=== PATIENT | female | born 1990 | race African-American/Black ===

== ENCOUNTER 2024-03-03 16:50 | Emergency (ER) | payer OTHER, SELFPAY ==
--- NOTE | ~2024-03-03 | XR_ITS ---
XR chest 2V Ordering provider: Gianfranco Smith APRN History: 33 years Female with . midsternal chest pain hx HTN . Comparison: None. FINDINGS: MEDIASTINUM: The cardiac silhouette is not enlarged. LUNGS: No effusions or pneumothorax. Prominent markings in the right lower lobe. Early pneumonia cannot be excluded. Follow-up advised. OTHER: No free air under the diaphragm. IMPRESSION: Prominent markings in the right lower lobe. Early pneumonia cannot be excluded. Follow-up advised. Reviewed, dictated and finalized at location A.
--- NOTE | 2024-03-03 16:52 | ECG_ITS ---
Test Date: 2024-03-03 16:55:53 Measurements Intervals [place] Rate: 93 P: 34 MT: 168 QRS: 22 QRSD: 92 T: 1 QT: 350 QTc: 437 Interpretive Statements SINUS RHYTHM NONSPECIFIC ST-T WAVE ABNORMALITY- ANT/INF LEADS BORDERLINE ECG No previous ECG available for comparison Electronically Signed On 03-03-2024 18:49:09 CDT by Edgardo Wyatt D.O.
[2024-03-03 17:04] VITALS: BP 157/81; PULSE 91; RESP 15; TEMP 36.3; O2SAT 99
--- NOTE | 2024-03-03 17:07 | ED.CHESTPAIN ---
HPI - Chest Pain General Chief Complaint: Chest Pain Stated Complaint: abnormal EKG Time Seen by Provider: 03/03/24 20:17 Focused HPI: 33-year-old female history of hypertension presents to the emergency room for evaluation of chest pain. Patient states that she has been experiencing of midsternal chest pain intermittently for 2 weeks. Patient was initially seen at an urgent care, had an EKG obtained which showed no acute abnormalities. Patient states at that time she felt that her chest pain was related to mold exposure from work. Urgent Care told her to take Zyrtec for the chest pain. States no improvement. Was seen again today at urgent care for similar symptoms, and was told to come to the emergency room for further evaluation. Patient states the chest pain is present for anywhere between several hours to several minutes. pain does not radiate. It is associated with occasional shortness of breath. Denies nausea or vomiting. Denies lightheadedness or dizziness. No history of similar symptoms GENERAL: Well-appearing, well-nourished, and in no acute distress. HEAD: Normocephalic, atraumatic. CHEST: Clear to auscultation. No respiratory distress. HEART: Regular rate and rhythm. NEURO: Alert and oriented x3. Patient screened in triage and initial orders placed. Additional care and disposition to be based upon diagnostic testing and treatment. Related Data Allergies Allergy/AdvReac Type Severity Reaction Status Date / Time No Known Allergies Allergy Verified 03/03/24 16:50 Course Vital Signs Vital signs: Vital Signs Temperature 36.3 C L 03/03/24 17:04 Pulse Rate 91 03/03/24 17:04 Respiratory Rate 15 03/03/24 17:04 Blood Pressure 157/81 H 03/03/24 17:04 Pulse Oximetry 99 03/03/24 17:04 Oxygen Delivery Room Air 03/03/24 17:04 Temperature 36.8 C 03/03/24 21:15 Pulse Rate 82 03/03/24 21:15 Respiratory Rate 21 H 03/03/24 21:15 Blood Pressure 143/106 H 03/03/24 21:15 Pulse Oximetry 100 03/03/24 21:15 Oxygen Delivery Room Air 03/03/24 20:58 MDM - Chest Pain Lab Data 03/03/24 17:12 03/03/24 17:12 Labs: Lab Results 07/18/24 Range/Units 17:12 WBC 7.5 (4.5-10.0) K/mm3 RBC 4.30 (4.2-5.4) M/mm3 Hgb 13.4 (12.0-15.0) g/dL Hct 38.7 (37.0-47.0) % MCV 90.0 (80-100) fl MCH 31.2 (26-34) pg MCHC 34.6 (32-36) g/dl RDW 13.1 (11.5-14.5) % Plt Count 261 (150-375) k/mm3 MPV 10.4 (7.4-10.4) fl Immature Gran % (Auto) 0.1 (0-0.5) % Neut % (Auto) 43.4 L (45.5-73.1) % Lymph % (Auto) 45.3 H (18.3-44.2) % [place] % (Auto) 8.1 (2.6-8.5) % Eos % (Auto) 2.4 (0-4.4) % Baso % (Auto) 0.7 (0.2-1.2) % Lymph # (Auto) 3.41 H (0.9-3.2) K/mm3 [place] # (Auto) 0.6 (0.1-0.6) K/mm3 Eos # (Auto) 0.2 (0-0.3) K/mm3 Baso # (Auto) 0.1 (0.0-0.1) K/mm3 Abs Immat Gran (auto) 0.01 (0.00-0.031) K/mm3 Absolute Neuts (auto) 3.3 (1.3-6.7) K/mm3 Absolute Nucleated RBC 0.000 (0.0-0.012) K/mm3 Nucleated RBC % 0.0 (0.0-0.2) % D-Dimer 0.48 (<0.48) ug/mL Sodium 139 (137-145) mmol/L Potassium 3.3 L (3.4-5.0) mmol/L Chloride 100 (98-107) mmol/L Carbon Dioxide 28 (22-30) mmol/L Anion Gap 11 (4-12) mmol/L BUN 11 (7-17) mg/dL Creatinine 0.80 (0.7-1.0) mg/dL Estim Creat Clear Calc 106 ml/min Estimated GFR > 60 (59 - ) Glucose 121 H (65-110) mg/dL Calcium 9.3 (8.4-10.2) mg/dL Magnesium 1.6 (1.6-2.3) mg/dL Total Bilirubin 0.4 (0.2-1.3) mg/dL AST 61 H (14-36) U/L ALT 65 H (6-35) U/L Alkaline Phosphatase 79 (38-126) U/L Troponin I < 0.012 (0.000-0.034) ng/mL Total Protein 8.0 (6.3-8.2) g/dL Albumin 4.3 (3.5-5.1) g/dL Discharge Plan Discharge Clinical Impression: Acute bronchospasm, Pneumonia Patient Disposition: Home, Self-Care Condition: Stable Instructions: Community Acquired Pneumonia (DC), Bronchospasm (ED) Additional Instructions: RETURN
[2024-03-03 17:26] LABS: Basophils Absolute Auto 0.1 K/mm3 (0.0-0.1); Basophils Percent Auto 0.7 % (0.2-1.2); Eosinophils Absolute Auto 0.2 K/mm3 (0-0.3); Eosinophils Percent Auto 2.4 % (0-4.4); Hematocrit 38.7 % (37.0-47.0); Hemoglobin 13.4 g/dL (12.0-15.0); Immature Granulocyte Absolute 0.01 K/mm3 (0.00-0.031); Immature Granulocyte Percent A 0.1 % (0-0.5); Lymphocytes Absolute Auto 3.41 K/mm3 (0.9-3.2); Lymphocytes Percent Auto 45.3 % (18.3-44.2); Mean Corpuscular HGB Conc 34.6 g/dl (32-36); Mean Corpuscular Hemoglobin 31.2 pg (26-34); Mean Platelet Volume 10.4 fl (7.4-10.4); Monocytes Absolute Auto 0.6 K/mm3 (0.1-0.6); Monocytes Percent Auto 8.1 % (2.6-8.5); Neutrophils Absolute Auto 3.3 K/mm3 (1.3-6.7); Neutrophils Percent Auto 43.4 % (45.5-73.1); Platelet Count Result 261 k/mm3 (150-375); Red Cell Distribution Width 13.1 % (11.5-14.5); White Blood Count 7.5 K/mm3 (4.5-10.0)
[2024-03-03 17:41] LABS: Alanine Aminotransferase 65 U/L (6-35); Albumin Level 4.3 g/dL (3.5-5.1); Alkaline Phosphatase 79 U/L (38-126); Anion Gap 11 mmol/L (4-12); Aspartate Amino Transferase 61 U/L (14-36); Bilirubin,Total 0.4 mg/dL (0.2-1.3); Blood Urea Nitrogen 11 mg/dL (7-17); Calcium 9.3 mg/dL (8.4-10.2); Carbon Dioxide 28 mmol/L (22-30); Chloride 100 mmol/L (98-107); Estimated CRCL calculation 106 ml/min; Estimated Glomerular Filt Rate > 60; Glucose 121 mg/dL (65-110); Magnesium 1.6 mg/dL (1.6-2.3); Potassium 3.3 mmol/L (3.4-5.0); Sodium 139 mmol/L (137-145)
[2024-03-03 17:49] LABS: Troponin I < 0.012 ng/mL (0.000-0.034)
[2024-03-03 17:54] LABS: D Dimer 0.48 ug/mL (<0.48)
[2024-03-03 19:20] VITALS: BP 178/98; PULSE 88; RESP 18; O2SAT 100
--- NOTE | 2024-03-03 20:18 | ED.CHESTPAIN ---
HPI - Chest Pain General Chief Complaint: Chest Pain Stated Complaint: abnormal EKG Time Seen by Provider: 03/03/24 20:17 Source: patient Mode of arrival: ambulatory Limitations: no limitations History of Present Illness HPI narrative: 33 YEARS OLD FEMALE REFERRED TO OUR EMERGENCY ROOM FROM URGENT CARE BECAUSE OF NONSPECIFIC ABNORMALITY IN HER EKG. PATIENT IS TELLING ME THAT SHE HAS BEEN HAVING RETROSTERNAL HEAVINESS FOR THE LAST 2 WEEKS. MAINLY WHILE AT WORK. 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 POSSIBLE MOLD AT WORK. THE HEAVINESS LATELY BECAME AT WORK AND AT HOME. SHE DENIES ANY AGGRAVATING OR RELIEVING FACTORS. SHE DENIES ANY FEVER, CHILLS, NAUSEA, VOMITING, COUGHING, SHORTNESS OF BREATH. PATIENT STARTED ON ANTIHYPERTENSIVE MEDICATION 2 WEEKS AGO AT THE URGENT CARE. Related Data Allergies Allergy/AdvReac Type Severity Reaction Status Date / Time No Known Allergies Allergy Verified 03/03/24 16:50 Review of Systems Review of Systems: All systems reviewed & are unremarkable except as noted in HPI and below Exam Narrative: GENERAL APPEARANCE: WELL-DEVELOPED, WELL-NOURISHED SKIN: NORMAL COLOR HEAD: NORMOCEPHALIC, NONTRAUMATIC EYES: CLEAR CONJUNCTIVA ENT: OROPHARYNX NORMAL, EARS NORMAL, NOSE NORMAL NECK: SUPPLE, NONTENDER CHEST AND RESPIRATORY: AIRWAY PATENT, NO RESPIRATORY DISTRESS, NO ACCESSORY MUSCLE USE, SCATTERED FINE WHEEZING BILATERALLY HEART: REGULAR RATE/RHYTHM ABDOMEN: SOFT, NONTENDER, NO ORGANOMEGALY, QUIET BOWEL SOUNDS VASCULAR: NORMAL PERIPHERAL PULSES, NORMAL CAPILLARY REFILL. 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 IS NORMAL TESTED, NO GROSS MOTOR DEFICIT Course Vital Signs Vital signs: Vital Signs Temperature 36.3 C L 03/03/24 17:04 Pulse Rate 91 03/03/24 17:04 Respiratory Rate 15 03/03/24 17:04 Blood Pressure 157/81 H 03/03/24 17:04 Pulse Oximetry 99 03/03/24 17:04 Oxygen Delivery Room Air 03/03/24 17:04 Temperature 36.3 C L 03/03/24 17:04 Pulse Rate 88 03/03/24 19:20 Respiratory Rate 18 03/03/24 19:20 Blood Pressure 178/98 H 03/03/24 19:20 Pulse Oximetry 100 03/03/24 19:20 Oxygen Delivery Room Air 03/03/24 17:04 MDM - Chest Pain MDM Narrative Medical decision making narrative: DIFFERENTIAL DIAGNOSIS INCLUDE CHEST WALL PAIN, ESOPHAGEAL SPASM, PULMONARY EMBOLISM, LESS LIKELY CORONARY ARTERY DISEASE, PATIENT CARDIAC SCORE IS 1, BRONCHOSPASM, PNEUMONIA BLOOD WORKUP TODAY SHOWED POTASSIUM OF 3.3 OTHERWISE NO SIGNIFICANT ABNORMALITY CHEST X-RAY SHOWED PROMINENT MARKING RIGHT LOWER LOBE COULD BE EARLY PNEUMONIA. EKG SHOWED NONSPECIFIC ABNORMALITY MY PLAN TO DISCHARGE PATIENT ON Z-HAMZAH, PREDNISONE AND ALBUTEROL TREATMENT. POSSIBLE HEAVINESS SECONDARY TO BRONCHOSPASM, COULD BE RELATED TO SOME ALLERGY AT WORK Differential Diagnosis Differential diagnosis: Likely other ( ABOVE) Medical Records Data Attestation: I reviewed the patient's medical records. Lab Data Attestation: I reviewed the patient's lab results. 03/03/24 17:12 03/03/24 17:12 Labs: Lab Results 03/03/24 Range/Units 17:12 WBC 7.5 (4.5-10.0) K/mm3 RBC 4.30 (4.2-5.4) M/mm3 Hgb 13.4 (12.0-15.0) g/dL Hct 38.7 (37.0-47.0) % MCV 90.0 (80-100) fl MCH 31.2 (26-34) pg MCHC 34.6 (32-36) g/dl RDW 13.1 (11.5-14.5) % Plt Count 261 (150-375) k/mm3 MPV 10.4 (7.4-10.4) fl Immature Gran % (Auto) 0.1 (0-0.5) % Neut % (Auto) 43.4 L (45.5-73.1) % Lymph % (Auto) 45.3 H (18.3-44.2) % [place] % (Auto) 8.1 (2.6-8.5) % Eo
[2024-03-03 20:58] VITALS: BP 162/82; PULSE 75; RESP 18; TEMP 36.7; O2SAT 100
[2024-03-03 21:15] VITALS: BP 143/106; PULSE 82; RESP 21; TEMP 36.8; O2SAT 100
== END 2024-03-03 21:07 | disposition home or self-care (01) ==
PROVIDERS: Nurse Practitioner Family; Emergency Provider Emergency Medicine
DX: J18.9 Pneumonia, unspecified organism (principal); J98.01 Acute bronchospasm; R94.31 Abnormal electrocardiogram [ECG] [EKG]
CPT/HCPCS: 36415; 71046; 80053; 83735; 84484; 85025; 85380; 93005; 99284